=== PATIENT | male | born 1960 | race Caucasian/White ===

== ENCOUNTER 2019-05-16 13:51 | Day surgery (SDC) | payer MEDICAID ==
[2019-05-12 16:17] LABS: ALBUMIN 4.1 G/DL (3.4-5.0); ANION GAP 6 (8-16); BLOOD UREA NITROGEN 18 MG/DL (7-18); BUN/CREATININE RATIO 21.7 (5.4-32.0); CALCIUM 9.6 MG/DL (8.5-10.1); CHLORIDE 104 MMOL/L (99-107); CREATININE 0.83 MG/DL (0.60-1.10); GLUCOSE 111 MG/DL (70-104); POTASSIUM 4.4 MMOL/L (3.5-5.1); SODIUM 141 MMOL/L (135-145); TOTAL CARBON DIOXIDE 30.9 MMOL/L (24-32); eGFR > 90 ML/MIN
[2019-05-12 16:22] LABS: BASOPHILS # (AUTO) 0.1 X10'3 (0-0.2); BASOPHILS % (AUTO) 0.6 % (0-1); EOSINOPHILS # (AUTO) 0.2 X10'3 (0-0.9); EOSINOPHILS % (AUTO) 2.1 % (0-6); HEMATOCRIT 46.5 % (42.0-52.0); HEMOGLOBIN 15.5 g/dl (14.0-17.9); LYMPHOCYTES # (AUTO) 2.4 X10'3 (1.1-4.8); LYMPHOCYTES % (AUTO) 20.4 % (21-51); MEAN CORPUSCULAR HGB CONC 33.2 g/dL (33.0-36.5); MEAN CORPUSCULAR VOLUME 90.2 FL (78-98); MEAN PLATELET VOLUME 8.8 FL (7.4-10.4); MONOCYTES % (AUTO) 8.6 % (2-12); NEUTROPHILS # (AUTO) 8.2 X10'3 (1.8-7.7); NEUTROPHILS % (AUTO) 68.3 % (42-75); PLATELET COUNT 238 X10'3 (140-440); RED BLOOD COUNT 5.16 X10'6 (4.70-6.10); RED CELL DISTRIBUTION WIDTH 13.5 % (11.5-14.5)
[2019-05-12 16:26] LABS: PARTIAL THROMBOPLASTIN TIME 27 SECONDS (22-32)
[~2019-05-16] VITALS: Ht 175.3 cm; Wt 145.5 kg
[~2019-05-16 13:51] MED LIST: AMLO5TAB92 PO; LISI40TA4 PO
[2019-05-16] MEDS ORDERED: normal saline 1000ml 1,000 ML IV PRN (14:15)
[2019-05-16] MEDS ORDERED: LIDOcaine/PRILOcaine 5gm cream TP ONE (14:15)
[2019-05-16] MEDS ORDERED: LORazepam 0.5 MG tablet PO PRN (14:15)
[2019-05-16] MEDS ORDERED: diphenhydrAMINE 25mg capsule PO PRN (14:15)
[2019-05-16 15:17] VITALS: BP 108/67
[2019-05-16] MEDS ORDERED: AMOX875T10 PO (15:18)
[2019-05-16] MEDS ORDERED: ATOR40TA PO (15:18)
[2019-05-16] MEDS ORDERED: PRED10TA23 PO (15:18)
[2019-05-16] MEDS ORDERED: ALB0.5UD IH (15:18)
[2019-05-16] MEDS ORDERED: LISI-600 PO (15:18)
[2019-05-16] MEDS ORDERED: ASPI81TA52 PO (15:18)
[2019-05-16] MEDS ORDERED: CARV25TA2 PO (15:18)
[2019-05-16] MEDS ORDERED: [UNRECOGNIZED DRUG - OTHER] INH (15:18)
[2019-05-16] MEDS ORDERED: NITR0.4T SL (15:18)
[2019-05-16] MEDS ORDERED: SPIR25TA5 PO (15:18)
[2019-05-16] MEDS ORDERED: FURO-150 PO (15:18)
[2019-05-16] MEDS ORDERED: ALBU18HF2 INH (15:18)
[2019-05-16] MEDS ORDERED: BENZ-16 PO (15:18)
== END 2019-05-16 15:30 | disposition home or self-care (01) ==
LOC: SSTAY O 13:51
PROVIDERS: ATTEND Internal Medicine Interventional Cardiology
DX: R94.39 Abnormal result of other cardiovascular function study (principal); Z53.8 Procedure and treatment not carried out for other reasons; I25.10 Atherosclerotic heart disease of native coronary artery without angina pectoris; I11.0 Hypertensive heart disease with heart failure; E78.5 Hyperlipidemia, unspecified; I50.9 Heart failure, unspecified; J44.9 Chronic obstructive pulmonary disease, unspecified; F17.210 Nicotine dependence, cigarettes, uncomplicated; F15.90 Other stimulant use, unspecified, uncomplicated; Z79.82 Long term (current) use of aspirin; Z79.899 Other long term (current) drug therapy; Z88.5 Allergy status to narcotic agent
CPT/HCPCS: 36415; 80048; 85025; 85610; 85730; J7030; Q0163